=== PATIENT | female | born 2000 | race Caucasian/White ===

== ENCOUNTER 2022-10-08 13:05 | Outpatient (REF) | payer OTHER, SELFPAY | END 2022-10-08 13:06 | disposition home or self-care (01) | LOC: NCHCN 13:05 | PROVIDERS: PCP Nurse Practitioner Family; Visit Provider Nurse Practitioner Family | DX: L65.8 Other specified nonscarring hair loss (principal) | CPT/HCPCS: 84443 ==

== ENCOUNTER 2022-10-13 13:28 | Outpatient (REF) | payer OTHER, SELFPAY ==
[2022-10-13 15:22] LABS: HCT 40.1 % (36.0-46.0); MCH 28.4 pg (27.0-33.0); MCHC 32.4 % (32.0-36.0); MCV 88 fL (80-95); Platelet Count 294 10^3/uL (130-400); RBC 4.58 10^6/uL (3.93-5.22); RDW 12.3 % (11.7-14.6); RDW-SD 39.6 fL; WBC 8.09 10^3/uL (4.4-10.8)
== END 2022-10-13 13:29 | disposition home or self-care (01) ==
LOC: NCHCN 13:28
PROVIDERS: PCP Nurse Practitioner Family; Visit Provider Nurse Practitioner Family
DX: L65.9 Nonscarring hair loss, unspecified (principal); L42 Pityriasis rosea; L70.8 Other acne
CPT/HCPCS: 85027

== ENCOUNTER 2024-01-22 18:00 | Outpatient (CLI) | payer OTHER, SELFPAY ==
[2024-01-22 16:53] LABS: HCG Quant, Pregnancy < 1 mIU/mL (1-3)
[2024-01-23 22:14] LABS: Progesterone 0.6 ng/mL (See Table)
== END 2024-01-22 18:01 | disposition home or self-care (01) ==
LOC: LBO 18:06
PROVIDERS: PCP Nurse Practitioner Family; Visit Provider Obstetrics & Gynecology
DX: N97.9 Female infertility, unspecified (principal); Z32.00 Encounter for pregnancy test, result unknown
CPT/HCPCS: 36415; 84144; 84702

== ENCOUNTER 2024-06-20 22:04 | Outpatient (REF) | payer OTHER, SELFPAY | END 2024-06-20 22:05 | disposition home or self-care (01) | LOC: NCHCN 22:04 | PROVIDERS: PCP Nurse Practitioner Family; Visit Provider Family Medicine | DX: N39.0 Urinary tract infection, site not specified (principal) | CPT/HCPCS: 87077; 87086; 87186 ==

== ENCOUNTER 2024-11-28 04:35 | Outpatient (CLI) | payer OTHER, SELFPAY ==
[2024-11-28 16:20] LABS: Abs Immature Grans 0.04 10^3/uL (0.0-0.06); Absolute Basophil Count 0.05 10^3/uL (0.0-0.2); Absolute Eosinophil Count 0.06 10^3/uL (0.0-0.7); Absolute Lymphocyte Count 2.43 10^3/uL (1.2-3.4); Absolute Monocyte Count 0.56 10^3/uL (0.1-0.8); Basophils % 0.5 %; Eosinophils % 0.6 %; HCT 33.6 % (36.0-46.0); HGB 11.4 g/dL (11.2-15.7); Immature Grans % 0.4 %; Lymphocytes % 22.6 %; MCH 28.7 pg (27.0-33.0); MCHC 33.9 % (32.0-36.0); MCV 85 fL (80-95); MPV 10.3 fL (8.0-11.0); Monocytes % 5.2 %; Neutrophils % 70.7 %; Platelet Count 250 10^3/uL (130-400); RBC 3.97 10^6/uL (3.93-5.22); RDW 12.3 % (11.7-14.6); RDW-SD 37.2 fL; WBC 10.74 10^3/uL (4.4-10.8)
[2024-11-30 09:43] LABS: Varicella IgG Antibody Positive (See Note)
[2024-11-30 09:52] LABS: Rubella IgG Ab (UVM) Negative (See Note)
== END 2024-11-28 04:36 | disposition home or self-care (01) ==
LOC: LBO 04:35
PROVIDERS: PCP Nurse Practitioner Family; Visit Provider Advanced Practice Midwife
DX: Z34.91 Encounter for supervision of normal pregnancy, unspecified, first trimester (principal)
CPT/HCPCS: 36415; 86787; 86850; 86900; 86901; 84443; 85025; 86762

== ENCOUNTER 2024-11-28 20:52 | Outpatient (REF) | payer OTHER, SELFPAY | END 2024-11-28 20:53 | disposition home or self-care (01) | LOC: LBN 20:52 | PROVIDERS: PCP Nurse Practitioner Family; Visit Provider Advanced Practice Midwife | DX: Z34.91 Encounter for supervision of normal pregnancy, unspecified, first trimester (principal) | CPT/HCPCS: 87086 ==

== ENCOUNTER 2025-01-21 06:33 | Outpatient (CLI) | payer OTHER, SELFPAY ==
[2025-01-21 09:30] VITALS: BP 111/64; PULSE 75; RESP 14; TEMP 37.3; O2SAT 100
[2025-01-21 10:24] LABS: Glucose Negative (Negative)
[2025-01-21 10:34] LABS: C & S Indicated? No; RBC 0-2 HPF (0-2)
[2025-01-21 11:05] LABS: HCT 31.7 % (36.0-46.0); HGB 10.7 g/dL (11.2-15.7); MCH 29.8 pg (27.0-33.0); MCHC 33.8 % (32.0-36.0); MCV 88 fL (80-95); MPV 10.1 fL (8.0-11.0); Platelet Count 222 10^3/uL (130-400); RBC 3.59 10^6/uL (3.93-5.22); RDW 12.8 % (11.7-14.6); RDW-SD 41.2 fL; WBC 9.81 10^3/uL (4.4-10.8)
== END 2025-01-21 11:05 ==
LOC: BCD 06:38 → OBS 09:41
PROVIDERS: Advanced Practice Midwife; PCP Nurse Practitioner Family; Visit Provider Advanced Practice Midwife
DX: Z34.00 Encounter for supervision of normal first pregnancy, unspecified trimester (principal)
CPT/HCPCS: 36415; 85027; 81003; 81015; G0378

== ENCOUNTER 2025-03-17 18:16 | Outpatient (REF) | payer OTHER, SELFPAY ==
[2025-03-17 10:48] LABS: Glucose Negative (Negative)
[2025-03-17 10:59] LABS: RBC 0-2 HPF (0-2); WBC >50 HPF (0-5)
== END 2025-03-17 18:17 | disposition home or self-care (01) ==
LOC: LBN 18:16
PROVIDERS: PCP Nurse Practitioner Family; Visit Provider Advanced Practice Midwife
DX: O26.892 Other specified pregnancy related conditions, second trimester (principal); R30.0 Dysuria
CPT/HCPCS: 87077; 81003; 81015; 87086; 87186

== ENCOUNTER 2025-03-24 05:15 | Outpatient (CLI) | payer MEDICAID, SELFPAY ==
[2025-03-24 16:12] LABS: HCT 30.8 % (36.0-46.0); HGB 10.3 g/dL (11.2-15.7); MCH 29.5 pg (27.0-33.0); MCHC 33.4 % (32.0-36.0); MCV 88 fL (80-95); MPV 9.5 fL (8.0-11.0); Platelet Count 251 10^3/uL (130-400); RBC 3.49 10^6/uL (3.93-5.22); RDW 12.1 % (11.7-14.6); RDW-SD 39.2 fL; WBC 10.27 10^3/uL (4.4-10.8)
[2025-03-24 16:38] LABS: Hemoglobin A1C 4.9 % (<5.7)
[2025-03-24 16:58] LABS: Glucose,1 Hr (Glucola) 154 mg/dL (80-140)
[2025-03-24 17:10] LABS: TSH (W/Ref FT4) 0.94 uIU/mL (0.36-3.74)
== END 2025-03-24 05:16 | disposition home or self-care (01) ==
PROVIDERS: PCP Nurse Practitioner Family; Visit Provider Advanced Practice Midwife
DX: Z34.93 Encounter for supervision of normal pregnancy, unspecified, third trimester (principal); E28.2 Polycystic ovarian syndrome; E03.9 Hypothyroidism, unspecified
CPT/HCPCS: 36415; 82950; 85027; 83036; 84443

== ENCOUNTER 2025-03-31 03:27 | Outpatient (CLI) | payer MEDICAID, SELFPAY ==
[2025-03-31 10:42] LABS: Glucose 1 Hour 168 mg/dL
== END 2025-03-31 03:28 | disposition home or self-care (01) ==
PROVIDERS: PCP Nurse Practitioner Family; Visit Provider Advanced Practice Midwife
DX: R73.09 Other abnormal glucose (principal)
CPT/HCPCS: 36415; 82951

== ENCOUNTER 2025-05-04 05:31 | Outpatient (CLI) | payer MEDICAID, SELFPAY ==
--- NOTE | 2025-05-04 08:30 | DI.US_ITS ---
Exam(s) US OB SHABANA WEIGHT EXAM: US OB SHABANA WEIGHT CLINICAL HISTORY: Size less than dates,o26.849. TECHNIQUE: Transabdominal obstetrical ultrasound performed. COMPARISON: US US OB 2-3 TRIMESTER from 01/17/2025 FINDINGS:: Number of fetuses: 1 position: CEPHALIC Placental location: ANTERIOR, grade 2. No evidence of previa. BIOMETRIC DATA: BPD: 8.8 cm mm = 35+4 weeks HC: 30.71 cm mm = 34+2 weeks AC: 31.35 cm mm = 35+2 weeks FL: 6.54 cm mm = 33+5 weeks EFW: 2513.15 g, 43.8 % Composite Age: 34+5 weeks ALONDRA: 10 June 2025 Heart Rate: 144 bpm Amniotic fluid index: 14 cm. Visually, amount of fluid is within normal limits. IMPRESSION: size and weight are within the expected range. DATA REPOSITORY:
== END 2025-05-04 05:51 ==
LOC: DI 05:31
PROVIDERS: PCP Nurse Practitioner Family; Visit Provider Advanced Practice Midwife
DX: O26.843 Uterine size-date discrepancy, third trimester (principal)
CPT/HCPCS: 76816

== ENCOUNTER 2025-05-12 18:52 | Outpatient (REF) | payer MEDICAID, SELFPAY | END 2025-05-12 18:53 | disposition home or self-care (01) | LOC: LBN 18:52 | PROVIDERS: PCP Nurse Practitioner Family; Visit Provider Advanced Practice Midwife | DX: Z34.92 Encounter for supervision of normal pregnancy, unspecified, second trimester (principal) | CPT/HCPCS: 87081 ==

== ENCOUNTER 2025-06-16 07:26 | Outpatient (CLI) | payer MEDICAID, SELFPAY ==
[2025-06-16 14:17] VITALS: BP 135/76; PULSE 90; TEMP 36.8
[2025-06-16 14:22] VITALS: BP 135/76; PULSE 90
--- NOTE | 2025-06-16 16:58 | W.OBNST ---
Date of service: 06/16/25 Time of Service: 15:30 NST Evaluation Reason for NST Reasons for Nonstress Test: POSTDATES Gestational Age Gestational Age in Weeks and Days: 41 Weeks and 1Days Test and Monitor Explained Test/Monitor Explained: Test Explained and Monitor Explained Vital Signs Blood Pressure: 135/76 Pulse: 90 Temperature: 98.2 F Weight: 190 lb Urine Results Urine Protein: Negative Urine Ketones: Negative Urine Glucose: Negative Urine Blood: Negative NST Information Date on Monitor: 06/16/25 Time on Monitor: 14:18 Date off Monitor: 06/16/25 Time off Monitor: 14:51 Total Time on Monitor: 33 NST Interventions: None NST Evaluation Patient States Movement: Present FHR Baseline: 135 Variability: Moderate 6-25 bpm Accelerations: 15x15 Decelerations: None NST Results: Reactive Note Ultrasound Done: N/A. NST Note NST Reviewed and Verified by: Fabienne Burch
[2025-06-21 14:59] VITALS: BP 135/76; PULSE 90; TEMP 36.8
== END 2025-06-16 15:35 ==
LOC: BCD 07:26 → OBS 14:11
PROVIDERS: PCP Nurse Practitioner Family; Visit Provider Registered Nurse
DX: O48.0 Post-term pregnancy (principal); Z3A.41 41 weeks gestation of pregnancy
CPT/HCPCS: 59025

== ENCOUNTER 2025-06-17 08:10 | Inpatient (IN) | payer MEDICAID, SELFPAY ==
[2025-06-17] VITALS (9 sets, daily range): BP systolic 122–136; BP diastolic 69–84; PULSE 71–92; RESP 18; TEMP 36.4–36.7; O2SAT 98
--- NOTE | 2025-06-17 09:38 | HPE_ITS ---
Date of service: 06/17/25 Time of Service: 09:38 Assessment and Plan Assessment and plan (1) Encounter for induction of labor: Status: Acute Assessment and plan: Admit to Center and routine admission labs. Comfort measures. Reviewed cervical ripening options including misoprostol with or without cervical ripening balloon. Rita elected to do cervical ripening balloon and misoprostol together and that was ordered. Anticipate . OB-HPI Labor/Delivery History of Present Illness Reason for Visit: Post Term Induction of Labor Chief Complaint: Scheduled Induction of Labor Indication for Induction: Post Date. ALONDRA Calculator Estimated Delivery Date Method Current WG Current Estimate 06/09/25 Conception 41w 1d Other Estimates 06/08/25 LMP (Certain) 41w 2d Comments: Rita is here with her Osito and admitted for induction of labor. She was given the option at 41 weeks of IOL or surveillance. She had a reactive NST but declined US based on concerns about the safety of US. History of Present Expected Delivery Route/Plan - CNM ROJAS - Osito Carlita (first child) Will learn of gender at delivery, if male will circ Rubella non-immune, offer MMR vaccine post , plans to accept Planning to attend childbirth class; hoping to labor without epidural GBS negative Specific Issues/Plan 1. Infertility, conceived on Letrazole, STD panel neg done at [facility] 1a. Chlamydia/Gonorrhea/HIV/Hep B/Hep C/RPR neg at [facility] 2. Hypothyroid- increased dose to 9 pills/week,TSH@ t1=1.20, t2=0.9, t3 0.94 3. Declined genetic testing 4. Pt declined PAP in 2023 at [facility] 5. Mild anemia at 20 wks (hgb 10.7), start oral iron tabs daily. 28 week Hgb=10.3. Taking oral iron at 33+4 visit, going well. 5a. Offer IV iron infusion if taking iron daily & Hgb < 10. At 36 wks=10.4, recheck in 2 wks __ 6. UTI @ 26 wks, C&S pending, MacroBid 100 mg PO X7 days Rx'ed 7. 1 hr glucola at 29 dnq=876, 3 hr GTT=84 168 122 89 8. Declines RSV and flu vaccine. 9. Size < dates at 33+4 weeks. Growth US: EFW in 43rd percentile, SHABANA 14, cephalic presenting Assessment: History Reviewed & Current Informed Consent Informed Consent: Induction of Labor and Risk,Benefits,Alternatives Discussed PFS All Active Problems (Updated 06/17/25 @ 09:43 by Lore Salguero CNM) Encounter for induction of labor (Acute) Elevated glucose (Acute) Anemia affecting (Acute) PCOS (polycystic ovarian syndrome) (Acute) conceived on Letrazol Rubella non-immune status, antepartum (Acute) Hypothyroid (Chronic) 75mcg at conception, to increase to 9pills/week (Acute) Medical History (Updated 06/17/25 @ 09:43 by Lore Salguero CNM) Urinary tract infection affecting , antepartum Size of fetus inconsistent with dates, antepartum Dysuria in in second trimester History of migraine Infertility, female care at [facility] Family History (Updated 11/28/24 @ 15:17 by Ana Khoury CNM) Father Hypertension Maternal Aunt Breast cancer Mother Hypothyroid Anemia Maternal Grandmother Anemia Social History (Updated 11/28/24 @ 15:20 by Ana Khoury CNM) Smoking/Tobacco Use Status: Never Second Hand Exposure: No Smoking risk assessment performed?: Yes Alcohol Intake: former Drug use: Never Household members: spouse Housing: house current occupation: [employer], [place]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 [employer] Pets and animals: Yes Pets and animals: dog(s) Sexually active: Yes What is your relationship status?: Panel score (0-1 are the most socially isolated patients): 1 What type of physical activity do you participate in: walking Duration: 15-30 minutes/day Frequency: 1-2 times per week Linn/Mormon: Holiness Special linn needs: No Agree to transfusion: Yes Do you feel safe at home: Yes Victim of physical abuse: No Victim of emotional abuse: No Victim of sexual abuse: No Would you like helpful sources: No Female Reproductive History Menstrual Age of Menarche: 13 History History 2 2 Para 0 Hx # Term Pregnancies 0 Multiple births 0 Hx # Pregnancies 0 Ectopic pregnancies 0 AB induced 0 Hx Number of Living Children 0 AB spontaneous 1 Past Pregnancies Del. Date GA/Weeks # Preg Succ Route Wgt Sex Labor Lgth Anesth esia Location Prov Complic 03/20/22 5 No Meds Allergies and Home Medications Allergies Allergy/AdvReac Type Severity Reaction Status Date / Time No Known Allergies Allergy Verified 06/14/25 13:55 Home Medications ?Medication ?Instructions ?Recorded ?Confirmed ?Type vits no.126-ferrous fum 1 tab PO DAILY 06/17/25 History 28 mg iron-folic acid 800 mcg tablet (Classic ) levothyroxine 75 mcg capsule 75 mcg PO DAILY #40 caps 12/26/24 06/17/25 Rx ferrous sulfate 27 mg iron tablet 27 mg PO DAILY 01/1706/17/25 History Exam Physical Exam Vital signs: Temp Pulse Resp BP 98.1 F 89 18 131/79 06/17/25 08:26 06/17/25 08:26 06/17/25 08:26 06/17/25 08:26 Vital Signs Reviewed: Yes Constitutional Constitutional: no acute distress Detailed Labor and Delivery Exam Dilation: 1 Effacement (%): 50 station: -2 Cervix position: posterior Consistency: soft Lancaster Score: Cervical Points Exam 0 1 2 3 Dilation Closed 1-2cm 3-4 cm 5-6cm Effacement 0-30% 40-50% 60-70% 80% Consistency Firm Medium Soft Station -3 -2 -1,0 +1,+2 Position Posterior Mid Anterior LANCASTER Score(Cervical Ripeness Score): 4 Amniotic Membrane Status: Intact Monitor Mode: External Contraction Frequency(min): irregular Contraction Duration(sec): 40-50 Contraction Intensity: Mild Fetus A Heart Rate Baseline: 150 Monitor Accelerations: 15 X 15 Monitor Decelerations: None Variability: Moderate (6-25 BPM) Presentation: Cephalic Categories: Category I Est. Weight: 7 lb HEENT Exam HEENT Exam: Normal Respiratory Exam Respiratory Exam: Normal Cardiovascular Exam Cardiovascular Exam: Normal Abdominal Exam Abdominal Exam: Normal Rectal Exam Rectal Exam: Normal Exam Exam: Normal Extremities Exam Extremities Exam: Normal Skin Exam Skin Exam: Normal Psychiatric Exam Psychiatric Exam: Normal Risk Assessment Risk for Shoulder Dystocia Historical/Initial OB: NEGATIVE FOR: Pelvic Abnormality, Pre- BMI>30, Previous Shoulder Dystocia or Previous Macrosomia Risk for Pre-Eclampsia Yes, if one or more: NEGATIVE FOR: Hx Pre-E/Gest HTN, Chronic HTN, Multiple Gestation, Pre-gestational DM, Renal Disease, Systemic Lupus or APA Syndrome Yes, if 2 or more: POSITIVE FOR: Nulliparity Risk for Post- Hemorrhage Initial: NEGATIVE FOR: Multiple Gestation, Previous PPH, Known Clotting Deficiency, Grand Multiparity or Anticoagulation Risks Reviewed Risks Reviewed Upon Admission: Yes
[2025-06-17] MEDS: miSOPROStol 25 MCG TAB PO ×2 (10:06→14:11)
--- NOTE | 2025-06-17 18:29 | W.PM.OBNL1 ---
Date of service: 06/17/25 Time of Service: 18:29 Informed Consent Informed Consent: Induction of Labor and Risk,Benefits,Alternatives Discussed Pelvic Exam Dilation: 4 Effacement (%): 75 station: -1 Cervix Position: posterior Consistency: soft Vaginal Exam Presentation: Cephalic Comments: AROM performed for mod amt. clear fluid Contractions Monitor Mode: External Contraction Frequency(min): every 5 Contraction Duration(sec): 60 Intensity: Mild/Moderate Fetus A Monitor: External (US) Heart Rate Baseline: 140 Presentation: Cephalic Variability: Moderate (6-25 BPM) Categories: Category I FHR Rhythm: Regular Accelerations: 15 X 15 Decelerations: None Amniotic Membrane Status: Ruptured Rupture Method: Artifical Amniotic Fluid: Clear Amount: maoderate Assessment and Plan Assessment and plan (1) Encounter for induction of labor: Status: Acute Assessment and plan: Reviewed options at this time of pitocin augmentation or AROM or expectant management. Rita prefers AROM and that was performed. Anticipate . Objective Temp Pulse Resp BP Pulse Ox 97.5 F L 92 H 18 136/77 98 06/17/25 13:57 06/17/25 18:27 06/17/25 08:26 06/17/25 18:27 06/17/25 13:57 Laboratory Results Sodium Cancelled 06/17/25 17:57 Potassium Cancelled 06/17/25 17:57 Chloride Cancelled 06/17/25 17:57 Carbon Dioxide Cancelled 06/17/25 17:57 Anion Gap Cancelled 06/17/25 17:57 BUN Cancelled 06/17/25 17:57 Creatinine Cancelled 06/17/25 17:57 Est GFR (CKD-EPI 2020) Cancelled 06/17/25 17:57 Glucose Cancelled 06/17/25 17:57 Calcium Cancelled 06/17/25 17:57 Total Bilirubin Cancelled 06/17/25 17:57 AST Cancelled 06/17/25 17:57 ALT Cancelled 06/17/25 17:57 Alkaline Phosphatase Cancelled 06/17/25 17:57 Total Protein Cancelled 06/17/25 17:57 Albumin Cancelled 06/17/25 17:57 Vital Signs Reviewed: Yes Subjective Patient Reports: New Complaints Interval history since last seen: The ripening balloon fell out and Rita is experiencing stronger contractions. She is coping extremely well and has been using the birthing ball and position changes for comfort.
[2025-06-18] VITALS (16 sets, daily range): BP systolic 110–146; BP diastolic 56–84; PULSE 77–104; RESP 16; TEMP 36.8–37.3
--- NOTE | 2025-06-18 01:21 | W.PM.OBNL1 ---
Date of service: 06/18/25 Time of Service: 01:22 Informed Consent Informed Consent: Induction of Labor and Risk,Benefits,Alternatives Discussed Pelvic Exam Dilation: 4 Effacement (%): 85 station: 0 Cervix Position: mid Consistency: soft Vaginal Exam Presentation: Cephalic Contractions Monitor Mode: None Contraction Frequency(min): every 4 min Contraction Duration(sec): 60 Intensity: Moderate/Strong Fetus A Monitor: Doppler Heart Rate Baseline: 130 Decelerations: None Amniotic Membrane Status: Ruptured Assessment and Plan Assessment and plan (1) Encounter for induction of labor: Status: Acute Assessment and plan: Comfort measures and position changes. Nitrous oxide provided for pain. Dr Guerra is aware of patient's admission and status and she is present on the unit. Anticipate Objective Temp Pulse Resp BP Pulse Ox 97.9 F 83 18 132/69 98 06/17/25 22:58 06/17/25 22:56 06/17/25 08:26 06/17/25 22:56 06/17/25 13:57 Laboratory Results Sodium Cancelled 06/17/25 17:57 Potassium Cancelled 06/17/25 17:57 Chloride Cancelled 06/17/25 17:57 Carbon Dioxide Cancelled 06/17/25 17:57 Anion Gap Cancelled 06/17/25 17:57 BUN Cancelled 06/17/25 17:57 Creatinine Cancelled 06/17/25 17:57 Est GFR (CKD-EPI 2020) Cancelled 06/17/25 17:57 Glucose Cancelled 06/17/25 17:57 Calcium Cancelled 06/17/25 17:57 Total Bilirubin Cancelled 06/17/25 17:57 AST Cancelled 06/17/25 17:57 ALT Cancelled 06/17/25 17:57 Alkaline Phosphatase Cancelled 06/17/25 17:57 Total Protein Cancelled 06/17/25 17:57 Albumin Cancelled 06/17/25 17:57 Vital Signs Reviewed: Yes Subjective Patient Reports: New Complaints Interval history since last seen: Rita is feeling stronger contractions and
[2025-06-18] MEDS: Levothyroxine 75 MCG TAB PO (06:05)
--- NOTE | 2025-06-18 07:09 | W.PM.OBNL1 ---
Date of service: 06/18/25 Time of Service: 09:08 Informed Consent Informed Consent: Induction of Labor and Risk,Benefits,Alternatives Discussed Pelvic Exam Dilation: 6 Effacement (%): 100 station: 0 Cervix Position: mid Consistency: soft Comments: exam deferred Contractions Monitor Mode: None Contraction Frequency(min): every 3-4 Contraction Duration(sec): 60 Intensity: Moderate/Strong Fetus A Monitor: External (US) Heart Rate Baseline: 130 Variability: Moderate (6-25 BPM) Categories: Category I FHR Rhythm: Regular Accelerations: 15 X 15 Decelerations: None Amniotic Membrane Status: Ruptured Assessment and Plan Assessment and plan (1) Encounter for induction of labor: Status: Acute Assessment and plan: Discussed pitocin augmentation with Rita. She agrees and an I.V. was started and pitocin is running at 4 mu/min. Anticipate . Objective Temp Pulse Resp BP Pulse Ox 98.4 F 77 18 110/56 L 98 06/18/25 03:46 06/18/25 05:45 06/17/25 08:26 06/18/25 05:45 06/17/25 13:57 Laboratory Results Sodium Cancelled 06/17/25 17:57 Potassium Cancelled 06/17/25 17:57 Chloride Cancelled 06/17/25 17:57 Carbon Dioxide Cancelled 06/17/25 17:57 Anion Gap Cancelled 06/17/25 17:57 BUN Cancelled 06/17/25 17:57 Creatinine Cancelled 06/17/25 17:57 Est GFR (CKD-EPI 2020) Cancelled 06/17/25 17:57 Glucose Cancelled 06/17/25 17:57 Calcium Cancelled 06/17/25 17:57 Total Bilirubin Cancelled 06/17/25 17:57 AST Cancelled 06/17/25 17:57 ALT Cancelled 06/17/25 17:57 Alkaline Phosphatase Cancelled 06/17/25 17:57 Total Protein Cancelled 06/17/25 17:57 Albumin Cancelled 06/17/25 17:57 Vital Signs Reviewed: Yes Subjective Patient Reports: No new Complaints Interval history since last seen: Rita has been using nitrous oxide with good effect and has been coping well with her contractions. Her contractions had become less strong and she was able to rest.
[2025-06-18] MEDS: Normal Saline Flush 10 ML SYR IVP (08:05)
[2025-06-18] MEDS: Lactated Ringers 1,000 ML 125 ML IV (08:07)
[2025-06-18] MEDS: Oxytocin/Normal Saline 30 UNIT/500 ML BAG 2 UNITS IV (08:08)
[2025-06-18 08:54] LABS: HCT 34.4 % (36.0-46.0); HGB 11.6 g/dL (11.2-15.7); MCH 29.7 pg (27.0-33.0); MCHC 33.7 % (32.0-36.0); MCV 88 fL (80-95); MPV 10.0 fL (8.0-11.0); Platelet Count 222 10^3/uL (130-400); RBC 3.91 10^6/uL (3.93-5.22); RDW 12.8 % (11.7-14.6); RDW-SD 40.8 fL; WBC 21.83 10^3/uL (4.4-10.8)
--- NOTE | 2025-06-18 15:24 | W.OBDELIVERY ---
Date of service: 06/18/25 Time of Service: 15:24 OB Labor/ Delivery Information Baby A Delivery Delivery Method: Spontaneaous Presentation: Cephalic Cephalic Position: Vertex Vertex Position: Left Occipital Anterior Cord Description-Baby A: 3 Vessels Cord Description Comment: short cord Amniotic Fluid: Clear Estimated Blood Loss: 200 Delivery Outcome: Liveborn Infant Transferred: Remains with Mother Note: Rita used nitrous oxide for pain and she got into the shower on her hands and knees and began experiencing an urge to push. She moved to bed and delivered on hands and knees. FHTs 130s during first stage of labor. FHTs 120-130s in second stage. Second stage huddle was done. Spontaneous delivery of female delivered in CAROLE position. Baby was placed in mother's arms and dried and stimulated. Spontaneous cry. Cord was clamped and cut by the baby's father . The placenta delivered spontaneously and appears to by intact with a three vessel cord. Pitocin 30 units IV was administered after delivery of the placenta. The perineum was inspected and a first degree laceration was repaired under local anesthetic. The baby did breastfeed well. After delivery, Mother and baby and father of the baby were stable and bonding well in the delivery room and there were no complications. Providers Nurse Centrifugal Wax Molder: Lore Salguero Nurse: Luly Moore Nurse: Nia Pfeiffer Labor/Delivery Information Number of Babies in Womb: 1 Steroids Given: None Reason Steroids Not Administered: N/A Group Beta Strep: Negative Antibiotics Administered: No Rubella Status: Nonimmune Blood Type: A+ Varicella Immunity: Immune Born En Route: No Maternal Complications: None Shoulder Dystocia: No Stages of Labor Onset of Labor Date: 06/18/25 Onset of Labor Time: 08:08 Complete Dilatation Date: 06/18/25 Complete Dilatation Time: 10:58 Labor - Stage 1 Duration: 2 hours and 50 minutes ROM Baby A: 06/17/25 ROM Baby A: 18:23 ROM Total Time- Baby A: [id number] Infant Delivery Date-Baby A: 06/18/25 Delivery Time-Baby A: 11:08 Labor Stage 2 Duration: 10 minutes Placenta Delivery Date-Baby A: 06/18/25 Placenta Delivery Time-Baby A: 11:16 Labor-Stage 3 Duration: 8 minutes Total Length of Labor-Baby A: 3 hours and 0 minutes Placenta Status: Delivered Baby A Gender: Female Gestational Status: Term (39-41.6 wks) Gestational Age in Weeks/Days: 41 Weeks and 2 Days weight: 7 lb 8.108 oz Length-Baby A: 20.25 in Head Circumference-Baby A: 13.5 in Score-1 Minute Interval(Baby A) Heart Rate-1 minute: 100 BPM or Greater Respiratory Effort- 1 minute: Spontaneous/Strong Cry Muscle Tone-1 minute: Active Movement Reflex Response-1 minute: Prompt Response Color-1 minute: Bluish Hands or Feet Total Score-1 minute: 9 Score-5 Minute Interval(Baby A) Heart Rate- 5 minute: 100 BPM or Greater Respiratory Effort-5 minute: Spontaneous/Strong Cry Muscle Tone-5 minute: Active Movement Reflex Response-5 minute: Prompt Response Color-5 minute: Bluish Hands or Feet Total Score- 5 minute: 9 Interventions Repair of Laceration Type: Perineal, Laceration Extension: First Degree. Sponge Count Correct: No Sponges Placed in Vagina, Sharp Count Correct: Yes. Laceration Repair Note: right perineal laceration repaired with 3-0 vicryl under local anesthetic
[2025-06-18] MEDS: Acetaminophen 325 MG TAB 650 MG PO ×2 (16:29→21:15)
[2025-06-18] MEDS: Ibuprofen 600 MG TAB PO ×2 (16:30→22:25)
[2025-06-18] MEDS: Hamamelis Leaf/Glycerin 100 EACH BOX PR (16:32)
[2025-06-18] MEDS: Dibucaine 1% 28 GM TUBE TP (16:33)
[2025-06-19] MEDS: Acetaminophen 325 MG TAB 650 MG PO ×2 (03:16→08:44)
[2025-06-19] MEDS: Ibuprofen 600 MG TAB PO (05:31)
[2025-06-19] MEDS: Levothyroxine 75 MCG TAB PO (05:31)
[2025-06-19 08:39] VITALS: BP 116/76; PULSE 87; RESP 16; TEMP 36.6; O2SAT 99
[2025-06-19] MEDS: Docusate Sodium 100 MG CAP PO (08:44)
--- NOTE | 2025-06-19 10:33 | DSE_ITS ---
Date of service: 06/19/25 Time of Service: 10:33 DS: Diagnosis Discharge Diagnosis (1) Term of female : Status: Acute Asessment and Plan: Caring for baby independently. Pain is managed well with oral analgesics. Voiding without difficulty. well. A - stable mother and baby , Post day 1 P - Discharge to home today. Routine post instructions. [facility] up at [facility]. Discharge Plan Discharge Details Reason For Visit: Post Term Induction of Labor Admit Date/Time: 06/17/25 08:10 Admit Provider: Lore Salguero Attending Provider: Lore Salguero Primary Care Provider: Tatyana Lee Home Meds and New Rx's Prescriptions: No Action Classic 28 mg iron- 800 mcg tablet 1 tab PO DAILY levothyroxine 75 mcg capsule 75 mcg PO DAILY Qty: 40 6RF Rx Instructions: Take one tablet daily and 2 tablets on thursday and thursday. ferrous sulfate 27 mg iron tablet 27 mg PO DAILY OB:DS Summary Summary Vaginal Delivery Method: Spontaneaous Episiotomy Description: None Laceration Description: Perineal Laceration Extension: First Degree Contraception Discussed Contraception Discussed: Yes Contraceptive Plan: Not planning to use (history of infertility), Infant Gender-Baby A: Female weight: 7 lb 8.108 oz Status at Discharge Functional status at discharge: independent ambulation Overall status at discharge: patient is back to baseline Mental Status: mental status grossly normal Speech and Movement: speech and movement normal Mood: congruent mood Affect: normal affect Exam Physical Exam Vital signs: Temp Pulse Resp BP Pulse Ox 97.9 F 87 16 116/76 99 06/19/25 08:39 06/19/25 08:39 06/19/25 08:39 06/19/25 08:39 06/19/25 08:39 Vital Signs Reviewed: Yes Constitutional Constitutional: no acute distress HEENT Exam HEENT Exam: Normal Respiratory Exam Respiratory Exam: Normal Cardiovascular Exam Cardiovascular Exam: Normal Fundal Exam Fundus: Below Umbilicus and Firm Rectal Exam Rectal Exam: Normal Exam Comments: no edema no ecchymosis. Well approximated. Extremities Exam Extremity Exam: Normal Skin Exam Skin Exam: Normal Psychiatric Exam Psychiatric Exam: Normal PFSH All Active Problems (Updated 06/19/25 @ 10:33 by Lore Salguero CNM) Term of female (Acute) Rubella non-immune status, antepartum (Acute) Hypothyroid (Chronic) 75mcg at conception, to increase to 9pills/week Medical History (Updated 06/19/25 @ 10:33 by Lore Salguero CNM) PCOS (polycystic ovarian syndrome) conceived on Letrazol Urinary tract infection affecting , antepartum Size of fetus inconsistent with dates, antepartum Dysuria in in second trimester History of migraine Infertility, female care at [facility] Family History (Updated 11/28/24 @ 15:17 by Ana Khoury CNM) Father Hypertension Maternal Aunt Breast cancer Mother Hypothyroid Anemia Maternal Grandmother Anemia Social History (Updated 11/28/24 @ 15:20 by Ana Khoury CNM) Smoking/Tobacco Use Status: Never Second Hand Exposure: No Smoking risk assessment performed?: Yes Alcohol Intake: former Drug use: Never Household members: spouse Housing: house current occupation: [employer], [place]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 [employer] Pets and animals: Yes Pets and animals: dog(s) Sexually active: Yes What is your relationship status?: Panel score (0-1 are the most socially isolated patients): 1 What type of physical activity do you participate in: walking Duration: 15-30 minutes/day Frequency: 1-2 times per week Linn/Zoroastrianism: Orthodox Special linn needs: No Agree to transfusion: Yes Do you feel safe at home: Yes Victim of physical abuse: No Victim of emotional abuse: No Victim of sexual abuse: No Would you like helpful sources: No Female Reproductive History Menstrual Age of Menarche: 13 History History 2 Para 0 Hx # Term Pregnancies 0 Multiple births 0 Hx # Pregnancies 0 Ectopic pregnancies 0 AB induced 0 Hx Number of Living Children 0 AB spontaneous 1 Past Pregnancies Del. Date GA/Weeks # Preg Succ Route Wgt Sex Labor Lgth Anesth esia Location [facility] 03/20/22 5 No DS: Data Vitals/I&O Vitals and I&O: Vital Signs Temperature 97.9 F 06/19/25 08:39 Temperature Source Forehead 06/19/25 08:39 Pulse 87 06/19/25 08:39 Pulse Rhythm Regular 06/18/25 20:21 Respiratory Rate 16 06/19/25 08:39 Blood Pressure 116/76 06/19/25 08:39 Blood Pressure Mean 89 06/19/25 08:39 Pulse Oximetry 99 06/19/25 08:39 Oxygen Delivery Method Room Air 06/17/25 08:17 Oxygen Flow Rate 0 06/17/25 08:17 Intake & Output 06/18/25 06/18/25 06/19/25 11:59 23:59 11:59 Intake Total 2.866 / 2.866 Output Total 2425 / 2425 Balance 2.866 / -2422.134 -2425 / -2422.134 Intake: IV 2.866 / 2.866 Output: Urine 2150 / 2150 Blood 275 / 275 Other: Urine Color Yellow Yellow Data Completed and Pending Pending Labs at Discharge: 06/17/25 06/18/25 06/19/25 17:57 08:45 07:05 WBC 21.83 H RBC 3.91 L Hgb 11.6 Hct 34.4 L MCV 88 MCH 29.7 MCHC 33.7 RDW 12.8 Plt Count 222 MPV 10.0 Sodium Cancelled Potassium Cancelled Chloride Cancelled Carbon Dioxide Cancelled Anion Gap Cancelled BUN Cancelled Creatinine Cancelled Est GFR (CKD-EPI 2020) Cancelled Glucose Cancelled Calcium Cancelled Total Bilirubin Cancelled AST Cancelled ALT Cancelled Alkaline Phosphatase Cancelled Total Protein Cancelled Albumin Cancelled Rubella IgG Antibody Pending ABO/Rh A Positive Antibody Screen NEGATIVE
[2025-06-19] MEDS: Measles, Mumps, & Rubella Vaccine 0.5 ML VIAL SC (14:52)
[2025-06-20 10:38] LABS: Rubella IgG Ab (UVM) Negative (See Note)
== END 2025-06-19 15:00 | disposition home or self-care (01) | DRG 807 ==
PROVIDERS: Admitting Provider Advanced Practice Midwife; PCP Nurse Practitioner Family; Visit Provider Advanced Practice Midwife
DX: O48.0 Post-term pregnancy (principal); Z37.0 Single live birth; Z3A.41 41 weeks gestation of pregnancy; O99.02 Anemia complicating childbirth; D64.9 Anemia, unspecified; O99.284 Endocrine, nutritional and metabolic diseases complicating childbirth; E03.9 Hypothyroidism, unspecified; E28.2 Polycystic ovarian syndrome; O69.3XX0 Labor and delivery complicated by short cord, not applicable or unspecified; O70.0 First degree perineal laceration during delivery; Z28.39 Other underimmunization status
CPT/HCPCS: 59200; 36415; 80053; 85027; 86850; 86900; 86901; 90707; 86762; J3490